=== PATIENT | female | born 1970 | race Two or more races ===

== ENCOUNTER → 2024-06-15 | Outpatient (CLI) | payer MEDICAID, SELFPAY ==
--- NOTE | 2024-06-15 09:32 | XR_ITS ---
Examination: Diagnostic digital mammography, bilateral Computer aided detection 3-D breast Tomosynthesis, bilateral Date and time of exam: June 15, 2024 0950 hours INDICATIONS: Mammogram March 13, 2024 12 mm focal asymmetry outer left breast CC view, 12 mm focal asymmetry upper right breast MLO view Technique: Nonmagnified MLO, CC views of the breasts to been obtained, reconstructed from 3-D Tomosynthesis images. R2 computer aided detection program utilized for evaluation of suspicious masses and/or abnormal calcifications. 3-D Tomosynthesis images obtained. Findings: The breasts are heterogeneously dense, which may obscure small masses Focal asymmetries remain outer right breast and outer left breast on the spot compression views Ultrasound examination today demonstrates multiple benign cysts with no suspicious solid nodules Impression: BI-RADS Category 3: Probably benign findings Recommend 6 month bilateral mammography follow-up.
--- NOTE | 2024-06-15 09:56 | XR_ITS ---
Examination: Breast ultrasound complete, bilateral Date and time of exam: June 15, 2024 1020 hours INDICATIONS: Mammogram June 15, 2024 12 mm focal asymmetry outer left breast CC view 12 mm focal asymmetry upper right breast MLO view Technique: Real-time grayscale ultrasonographic imaging bilateral breasts, including all 4 quadrants as well as nipple retroareolar and axillary regions. Findings: Sonographic images right breast Multiple benign cysts, the largest in the 12:00 position 6 x 4 mm and 11:00 position 6 x 4 mm No solid nodules Sonographic images left breast Multiple benign cysts, the largest in the 3:00 position 5 x 6 mm, 9:00 position 5 x 6 mm No solid nodules IMPRESSION: BI-RADS Category 2: Benign findings
== END | disposition home or self-care (01) ==
PROVIDERS: PCP Internal Medicine; Referring Provider Internal Medicine; Visit Provider Internal Medicine
DX: R92.333 Mammographic heterogeneous density, bilateral breasts (principal); N64.89 Other specified disorders of breast
CPT/HCPCS: 76641; 77062; 77066; G0279